=== PATIENT | male | born 1965 | race African-American/Black ===

== ENCOUNTER 2017-04-23 11:03 | Emergency (ER) | payer BC ==
[~2017-04-23] VITALS: Ht 162.6 cm; Wt 88.0 kg
[2017-04-23] MEDS ORDERED: BLOO-140 IN (11:26)
[2017-04-23] MEDS ORDERED: ACET-73 PO (11:26)
[2017-04-23] MEDS ORDERED: ATOR40TA PO (11:26)
[2017-04-23] MEDS ORDERED: INSU3INS6 SQ (11:26)
[2017-04-23] MEDS ORDERED: LISI-603 PO (11:26)
[2017-04-23] MEDS ORDERED: METF750T2 PO (11:26)
[2017-04-23] MEDS ORDERED: GLIP10TA11 PO (11:26)
[2017-04-23 11:57] LABS: BASOPHILS # (AUTO) 0.1 K/uL (0.0-8.0); BASOPHILS % (AUTO) 1.4 % (0.0-2.0); EOSINOPHILS % (AUTO) 0.7 % (0.0-7.0); HEMATOCRIT 42.6 % (40-50); LYMPHOCYTES # (AUTO) 0.9 K/UL (0.8-4.8); LYMPHOCYTES % (AUTO) 21.7 % (20.5-51.5); MEAN CORPUSCULAR HEMOGLOBIN 27.8 UUG (27.0-31.0); MEAN CORPUSCULAR HGB CONC 33 g/dL (32.0-37.0); MEAN CORPUSCULAR VOLUME 84.5 FL (82.0-92.0); MONOCYTES # (AUTO) 0.3 K/UL (0.1-1.30); MONOCYTES % (AUTO) 7.5 % (0.0-11.0); NEUTROPHILS % (AUTO) 68.7 % (38.5-71.5); PLATELET COUNT (AUTO) 170 K/UL (150-450); RED BLOOD CELL COUNT(AUTO) 5.04 MIL/UL (4.7-6.1); WHITE BLOOD COUNT (AUTO) 4.3 K/UL (4.0-11.2)
--- NOTE | 2017-04-23 12:00 | NUR ---
PT WAS EVALUATED BY DR BRITTON. PT IS IN ROOM #1B.
[2017-04-23 12:06] LABS: CREATININE 1.5 mg/dL (0.6-1.3); POTASSIUM 4.3 mmol/L (3.5-5.1)
[2017-04-23 12:17] LABS: BILIRUBIN,TOTAL 0.6 mg/dL (0.2-1.0); TOTAL PROTEIN, SERUM 7.5 g/dL (6.4-8.2)
--- NOTE | 2017-04-23 15:03 | NUR ---
PT WAS D/C TO HOME. D/C INSTRUCTIONS GIVEN TO THE PT.
[2017-04-23 15:04] VITALS: BP 148/96
== END 2017-04-23 15:04 | disposition home or self-care (01) ==
LOC: EDSEX 11:03 → ER 11:03
DX: I10 Essential (primary) hypertension (principal); R94.31 Abnormal electrocardiogram [ECG] [EKG]; E11.9 Type 2 diabetes mellitus without complications; Z79.4 Long term (current) use of insulin
CPT/HCPCS: 36415; 70030-TC; 70450; 71010; 85025; 85610; 93005; A4663; J3490